=== PATIENT | female | born 1945 | race Caucasian/White ===

== ENCOUNTER 2017-02-27 09:48 | Outpatient (CLI) | payer MEDICARE | END 2017-02-27 09:49 | disposition home or self-care (01) | DX: G47.33 Obstructive sleep apnea (adult) (pediatric) (principal); G47.00 Insomnia, unspecified | CPT/HCPCS: 99203; G0463 ==

== ENCOUNTER 2017-04-03 19:31 | Outpatient (CLI) | payer MEDICARE | END 2017-04-03 19:32 | disposition home or self-care (01) | LOC: SC 19:31 | PROVIDERS: ATTEND Internal Medicine Pulmonary Disease | DX: G47.33 Obstructive sleep apnea (adult) (pediatric) (principal); Z68.29 Body mass index [BMI] 29.0-29.9, adult | CPT/HCPCS: 95810 ==

== ENCOUNTER 2017-05-03 12:22 | Outpatient (CLI) | payer MEDICARE ==
--- NOTE | 2017-05-04 16:59 | Mammography Report ---
DIGITAL SCREENING RIGHT MAMMOGRAM: 05/03/2017 CLINICAL INDICATION: A 72-year-old with history of late childbearing, personal history of left breast cancer, status post mastectomy. TECHNIQUE: Right CC and MLO views were obtained. COMPARISON: 04/2016, 03/2015, 02/2014, 02/2013, 08/2011, 08/2010. FINDINGS: The right breast again demonstrates scattered fibroglandular densities. No suspicious mass es, clustered microcalcifications, or regions of architectural distortion are identified. IMPRESSION: NEGATIVE EXAMINATION. RECOMMENDATION: ROUTINE ANNUAL SCREENING UNLESS OTHERWISE CLINICALLY INDICATED. BIRADS CATEGORY 1-NEGATIVE. STANDARD QUALIFYING STATEMENTS 1. This examination was reviewed with the aid of Computer-Aided Detection (CAD). 2. A negative or benign imaging report should not delay biopsy if clinically suspicious findings are present. Consider surgical consultation if warranted. More than 5% of cancers are not identified by i ing. 3. Dense breasts may obscure an underlying neoplasm. JOB #: [id number] EXT JOB #:[id number]
== END 2017-05-03 12:23 | disposition home or self-care (01) ==
LOC: DI 12:22
PROVIDERS: ATTEND Internal Medicine Hematology & Oncology
DX: Z12.31 Encounter for screening mammogram for malignant neoplasm of breast (principal); Z85.3 Personal history of malignant neoplasm of breast; Z90.12 Acquired absence of left breast and nipple

== ENCOUNTER 2017-05-10 09:13 | Outpatient (CLI) | payer MEDICARE | END 2017-05-10 09:14 | disposition home or self-care (01) | LOC: SC 09:13 | PROVIDERS: ATTEND Nurse Practitioner Family | DX: G47.33 Obstructive sleep apnea (adult) (pediatric) (principal) | CPT/HCPCS: 99214; G0463; 99212 ==

== ENCOUNTER 2017-12-30 11:30 | Emergency (ER) | payer MEDICARE ==
[2017-12-30 11:58] LABS: BASOPHILS # (AUTO) 0.3 10^3/uL (0.0-0.1); BASOPHILS % (AUTO) 4.6 %; EOSINOPHILS # (AUTO) 0.6 10^3/uL (0.0-0.7); EOSINOPHILS % (AUTO) 9.5 %; HGB - HEMOGLOBIN 13.4 g/dL (12.0-16.0); LYMPHOCYTES # (AUTO) 1.8 10^3/uL (1.5-3.5); LYMPHOCYTES % (AUTO) 27.4 %; MEAN CORPUSCULAR HEMOGLOBIN 36.7 pg (27.0-31.0); MEAN CORPUSCULAR HGB CONC 33.8 g/dL (32.0-36.0); MEAN PLATELET VOLUME 10.8 fL (7.9-10.8); MONOCYTES # (AUTO) 0.4 10^3/uL (0.0-1.0); MONOCYTES % (AUTO) 6.4 %; NEUTROPHILS # (AUTO) 3.4 10^3/uL (1.5-6.6); NEUTROPHILS % (AUTO) 52.1 %; PLT - PLATELET COUNT 230 10^3/uL (130-450); RED BLOOD COUNT 3.65 10^6/uL (4.20-5.40); RED CELL DISTRIBUTION WIDTH 12.7 % (12.0-15.0); WHITE BLOOD COUNT 6.6 x10^3/uL (4.8-10.8)
[2017-12-30 11:59] LABS: MEAN CORPUSCULAR VOLUME 108.6 fL (81.0-99.0)
[2017-12-30 12:04] LABS: CALCIUM 9.5 mg/dL (8.5-10.3); CREATININE 0.6 mg/dL (0.4-1.0)
[2017-12-30 12:19] LABS: PLATELET ESTIMATE, MANUAL NORMAL (130-450,000) (NORMAL); PLATELET MORPHOLOGY 1+ GIANT PLATELETS (NORMAL)
[2017-12-30] MEDS ORDERED: IPRATROPIUM/ALBUTEROL 3 ML NEB INH STA (12:29)
--- NOTE | 2017-12-30 12:59 | ED Physician Documentation ---
History of Present Illness - Stated complaint Stated Complaint: SOA - Chief complaint Chief Complaint: Resp - History obtained from History obtained from: Patient - History of Present Illness Timing: How many days ago (5) Pain level max: 0 Pain level now: 0 Improved by: albuterol Worsened by: exertion - Additonal information Additional information: states itchy, watery, eyes and dry cough for 5 days. Feels like her allergies in the past. Has wheezing. Does have COPD and is using albuterol at home, using it every 6 hrs for the past few days. No fevers. Albuterol helps. Worse with exertion. Review of Systems Constitutional: denies: Fever, Chills Ears: denies: Ear pain Nose: denies: Rhinorrhea / runny nose, Congestion Throat: denies: Sore throat Cardiac: denies: Chest pain / pressure Respiratory: reports: Wheezing GI: denies: Abdominal Pain, Nausea, Vomiting, Diarrhea Skin: denies: Rash Musculoskeletal: denies: Neck pain, Back pain Neurologic: denies: Headache PD PAST MEDICAL HISTORY - Past Medical History Cardiovascular: None Respiratory: COPD, Sleep apnea Endocrine/Autoimmune: None GI: None : None HEENT: None Psych: None Musculoskeletal: None Derm: None - Past Surgical History Past Surgical History: Yes General: Colonoscopy HEENT: Tonsil/Adenoidectomy Derm: Skin cancer surgery - Present Medications Home Medications: Ambulatory Orders Medication Instructions Recorded Confirmed Cholecalciferol (Vitamin D3) 2,500 unit PO DAILY 06/10/13 11/06/17 [Vitamin D] Anastrozole 1 mg ORAL DAILY 08/26/13 11/06/17 Calcium Carbonate [Calci-Chew] 500 tab PO DAILY 01/06/14 11/06/17 Cyanocobalamin/Folic Acid [Vitamin 1 tab PO DAILY 06/16/14 11/06/17 L88-Hatog Acid Tablet] Albuterol Sulf [Ventolin Hfa 1 - 2 puffs INH Q4HR PRN #1 inhaler 12/30/17 Inhaler] predniSONE [Prednisone] 40 mg PO DAILY #10 tablet 12/30/17 - Allergies Allergies/Adverse Reactions: Allergies Allergy/AdvReac Type Severity Reaction Status Date / Time No Known Drug Allergies Allergy Verified 12/30/17 11:40 - Social History Does the pt smoke?: No Smoking Status: Never smoker Does the pt drink ETOH?: No Does the pt have substance abuse?: No - Immunizations Immunizations are current?: Yes - POLST Patient has POLST: No PD ED PE NORMAL - Vitals Vital signs reviewed: Yes - General General: Alert and oriented X 3, No acute distress, Well developed/nourished - HEENT HEENT: PERRL, Ears normal, Moist mucous membranes, Pharynx benign - Neck Neck: Supple, no meningeal sign - Cardiac Cardiac: RRR - Respiratory Respiratory: No respiratory distress, Other (wheezing B) - Abdomen Abdomen: Soft, Non tender, Non distended - Derm Derm: Warm and dry, No rash - Extremities Extremities: No deformity, No edema, No calf tenderness / cord - Neuro Neuro: Alert and oriented X 3 - Psych Psych: Normal mood, Normal affect Results - Vitals Vitals: Vital Signs - 24 hr 12/30/17 12/30/17 12/30/17 11:37 12:55 13:36 Temperature 37.5 C 36.6 C Heart Rate 97 74 74 Respiratory 24 16 16 Rate Blood Pressure 187/87 H 136/74 H O2 Saturation 98 93 Oxygen O2 Source Room air - EKG (time done) 1151 Rate: Rate (enter#) (82) Rhythm: NSR [place]: Normal Intervals: Normal UT QRS: Normal Ischemia: Normal ST segments Computer interpretation: Agree with computer - Labs Labs: Laboratory Tests 12/30/17 12/30/17 12/30/17 11:51 11:51 11:51 WBC 6.6 RBC 3.65 L Hgb 13.4 Hct 39.7 MCV 108.6 H MCH 36.7 H MCHC 33.8 RDW 12.7 Plt Count 230 MPV 10.8 Neut # 3.4 Lymph # 1.8 [place] # 0.4 Eos # 0.6 Baso # 0.3 H Absolute Nucleated RBC 0.00 Nucleated RBC % 0.0 Manual Slide Review Indicated WBC Morphology NORMAL APPEARANCE Platelet Estimate NORMAL (130-450,000) Platelet Morphology 1+ GIANT PLATELETS RBC Morph Micro Appear 1+ TEARDROP CELLS Sodium 137 Potassium 4.1 Chloride 102 Carbon Dioxide 26 Anion Gap 9.0 BUN 14 Creatinine 0.6 Estimated GFR (MDRD) 99 Glucose 105 H Calcium 9.5 Troponin I < 0.04 B-Natriuretic Peptide 12/30/17 11:51 WBC RBC Hgb Hct MCV MCH MCHC RDW Plt Count MPV Neut # Lymph # [place] # Eos # Baso # Absolute Nucleated RBC Nucleated RBC % Manual Slide Review WBC Morphology Platelet Estimate Platelet Morphology RBC Morph Micro Appear Sodium Potassium Chloride Carbon Dioxide Anion Gap BUN Creatinine Estimated GFR (MDRD) Glucose Calcium Troponin I B-Natriuretic Peptide 74 - Rads (name of study) cxr Radiology: Prelim report reviewed, EMP read contemporaneously, See rad report ( no acute abnormality) PD MEDICAL DECISION MAKING - ED course Complexity details: reviewed results, re-evaluated patient, considered differential, d/w patient ED course: Patient is a 72-year-old female who presents to the emergency department with what appears to be a COPD flare. Feels better after nebulizer treatment here. Also will start on steroids. She is well-appearing, nontoxic. No evidence of infection at this time. Will hold antibiotics. No hypoxia. No respiratory distress. Improved aeration after nebulizer treatment. Speaking in full sentences. Patient and family counseled regarding signs and symptoms for which I believe and urgent re-evaluation would be necessary. Patient with good understanding of and agreement to plan and is comfortable going home at this time This document was made in part using voice recognition software. While efforts are made to proofread this document, sound alike and grammatical errors may occur. Departure - Departure Disposition: 01 Home, Self Care Clinical Impression: COPD exacerbation Upper respiratory tract infection Qualifiers: URI type: unspecified viral URI Qualified Code(s): J06.9 - Acute upper respiratory infection, unspecified Condition: Good Instructions: ED COPD Flare Follow-Up: Mari Mckeon PA [Primary Care Provider] - Within 1 week Prescriptions: Albuterol Sulf [Ventolin Hfa Inhaler] 1 - 2 puffs INH Q4HR PRN #1 inhaler PRN Reason: Shortness Of Air/Wheezing predniSONE [Prednisone] 40 mg PO DAILY #10 tablet Comments: Continue the albuterol at home. Return if you worsen. This should improve over the next few days. Discharge Date/Time: 12/30/17 13:38
[2017-12-30] MEDS ORDERED: predniSONE 20 MG TABLET PO STA (13:00)
--- NOTE | 2017-12-30 13:03 | XRAY Report ---
EXAM: CHEST RADIOGRAPHY EXAM DATE: 12/30/2017 12:27 PM. CLINICAL HISTORY: Cp soa. COMPARISON: 06/19/2016. TECHNIQUE: 2 views. FINDINGS: Lungs/Pleura: No focal consolidation evident. No pleural effusion. No pneumothorax. Normal volumes. Mediastinum: Heart and mediastinal contours are unremarkable. Other: None. IMPRESSION: No radiographically apparent acute abnormality in the chest. No significant change from p rior. [facility] Referring Provider Line: [phone] SITE ID: [id number]
[2017-12-30 13:37] VITALS: BP 136/74
== END 2017-12-30 13:38 | disposition home or self-care (01) ==
LOC: ED 11:30
DX: J44.9 Chronic obstructive pulmonary disease, unspecified (principal); J06.9 Acute upper respiratory infection, unspecified
CPT/HCPCS: 36415; 71046; 80048; 83880; 84484; 85025; 93005; 94640; 99283; 99284; J7512

== ENCOUNTER 2018-05-08 08:29 | Outpatient (CLI) | payer MEDICARE ==
--- NOTE | 2018-05-09 16:26 | Mammography Report ---
Procedure Date: 05/08/2018 Accession Number: [id number] / [id number] Procedure: MGN - Screening Mammo Dig RT CPT Code: FULL RESULT: EXAM: Screening Mammo Dig RT DATE: 05/08/2018 8:52 AM CLINICAL HISTORY: 73-year-old female with history of late childbearing and left breast mastectomy due to breast cancer presents for mammogram. TECHNIQUE: Right CC and MLO views were obtained. COMPARISON: 05/03/2017, 05/04/2016, 04/13/2015, 03/03/2014. FINDINGS: The right breast demonstrates scattered fibroglandular densities bilaterally. No suspicious masses, clustered microcalcifications, or regions of architectural distortion are identified. IMPRESSION: Negative examination RECOMMENDATION: Routine annual screening unless otherwise clinically indicated. BIRADS CATEGORY 1: Negative STANDARD QUALIFYING STATEMENTS: 1. This examination was reviewed with the aid of Computer-Aided Detection (CAD). 2. A negative or benign imaging report should not delay biopsy if clinically suspicious findings are present. Consider surgical consultation if warrented. More than 5% of cancers are not identified by imaging. 3. Dense breasts may obscure an underlying neoplasm.
== END 2018-05-08 08:30 | disposition home or self-care (01) ==
LOC: DI.N 08:29
PROVIDERS: ATTEND Internal Medicine Hematology & Oncology
DX: Z12.31 Encounter for screening mammogram for malignant neoplasm of breast (principal); Z85.3 Personal history of malignant neoplasm of breast; Z90.12 Acquired absence of left breast and nipple

== ENCOUNTER 2019-01-17 17:09 | Emergency (ER) | payer MEDICARE ==
[2019-01-17] MEDS ORDERED: IPRATROPIUM/ALBUTEROL 3 ML NEB INH STA (17:14)
[2019-01-17] MEDS ORDERED: predniSONE 20 MG TABLET PO STA (17:14)
[2019-01-17] MEDS ORDERED: ALBUTEROL NEB 2.5 MG/3 ML INH STA ×2 (17:48→19:01)
--- NOTE | 2019-01-17 18:32 | ED Physician Documentation ---
PD HPI DYSPNEA - Stated complaint Stated Complaint: DIFFICULTY BREATHING - Chief complaint Chief Complaint: Resp - History obtained from History obtained from: Patient, Family - History of Present Illness Timing - details: Gradual onset Pain level max: 0 Pain level now: 0 Improved by: Rest Worsened by: Exertion Associated symptoms: No: Fever Similar symptoms before: Has not had sx before Recently seen: Not recently seen - Additional information Additional information: 73-year-old female with a history of COPD presents to the emergency department dyspnea for the past 2 weeks. Increasing wheezing. No fevers. No chest pain. No change in her cough. Does have albuterol at home. Is not on steroids. Review of Systems Constitutional: denies: Fever, Chills Cardiac: denies: Chest pain / pressure Respiratory: reports: Dyspnea, Wheezing GI: denies: Vomiting, Diarrhea Skin: denies: Rash Musculoskeletal: denies: Neck pain, Back pain PD PAST MEDICAL HISTORY - Past Medical History Cardiovascular: None Respiratory: COPD, Sleep apnea Endocrine/Autoimmune: None GI: None : None HEENT: None Psych: None Musculoskeletal: None Derm: None - Past Surgical History Past Surgical History: Yes General: Colonoscopy HEENT: Tonsil/Adenoidectomy Derm: Skin cancer surgery - Present Medications Home Medications: Ambulatory Orders Medication Instructions Recorded Confirmed Cholecalciferol (Vitamin D3) 2,500 unit PO DAILY 06/10/13 11/12/18 [Vitamin D] Calcium Carbonate [Calci-Chew] 500 tab PO DAILY 01/06/14 11/12/18 Cyanocobalamin/Folic Acid [Vitamin 1 tab PO DAILY 06/16/14 11/12/18 H64-Qsrni Acid Tablet] Albuterol Sulf [Ventolin Hfa 1 - 2 puffs INH Q4HR PRN #1 inhaler 12/30/17 11/12/18 Inhaler] predniSONE [Deltasone] 10 mg PO [id number] #42 tab 01/17/19 - Allergies Allergies/Adverse Reactions: Allergies Allergy/AdvReac Type Severity Reaction Status Date / Time No Known Drug Allergies Allergy Verified 01/17/19 17:17 - Social History Does the pt smoke?: No Smoking Status: Never smoker Does the pt drink ETOH?: No Does the pt have substance abuse?: No - Immunizations Immunizations are current?: Yes - POLST Patient has POLST: No PD ED PE NORMAL - Vitals Vital signs reviewed: Yes - General General: Alert and oriented X 3, Well developed/nourished - HEENT HEENT: PERRL, Moist mucous membranes - Neck Neck: Supple, no meningeal sign - Cardiac Cardiac: RRR, Strong equal pulses - Respiratory Respiratory: Other (diminished breath sounds, pursed lip breathing.) - Abdomen Abdomen: Soft, Non tender, Non distended - Derm Derm: Warm and dry - Extremities Extremities: No edema - Neuro Neuro: Alert and oriented X 3 - Psych Psych: Normal mood, Normal affect Results - Vitals Vitals: Vital Signs - 24 hr 01/17/19 01/17/19 01/17/19 17:11 17:34 18:26 Temperature 36.6 C Heart Rate 97 89 83 Respiratory 24 18 20 Rate Blood Pressure 160/84 H O2 Saturation 93 01/17/19 01/17/19 01/17/19 18:56 19:18 19:57 Temperature 36.9 C 36.8 C Heart Rate 86 87 64 Respiratory 16 20 18 Rate Blood Pressure 140/89 H 134/84 H O2 Saturation 94 96 Oxygen O2 Source Room air PD MEDICAL DECISION MAKING - ED course Complexity details: re-evaluated patient, considered differential, d/w patient, d/w family ED course: 73-year-old female presents to the emergency department with a COPD flare. Will place on steroids as well as a steroid taper. Feels better after steroids and nebulizer treatment here. No hypoxia. No further respiratory distress. Patient counseled regarding signs and symptoms for which I believe and urgent re-evaluation would be necessary. Patient with good understanding of and agreement to plan and is comfortable going home at this time This document was made in part using voice recognition software. While efforts are made to proofread this document, sound alike and grammatical errors may occur. No fevers. No change in cough. Will hold x-ray at this time as well. Departure - Departure Disposition: 01 Home, Self Care Clinical Impression: COPD exacerbation Condition: Good Instructions: ED COPD Flare Follow-Up: Mari Mckeon PA [Primary Care Provider] - Within 1 week Prescriptions: predniSONE [Deltasone] 10 mg PO [id number] #42 tab Comments: Continue to use your inhaler every 3-4 hours at home. Use the steroids as directed. Return if you worsen. Your prescriptions were sent to [facility] Discharge Date/Time: 01/17/19 19:57
[2019-01-17 19:57] VITALS: BP 134/84
== END 2019-01-17 19:57 | disposition home or self-care (01) ==
LOC: ED 17:09
DX: J44.1 Chronic obstructive pulmonary disease with (acute) exacerbation (principal)
CPT/HCPCS: 94640; 99282; 99284; J7512

== ENCOUNTER 2019-05-09 10:08 | Outpatient (CLI) | payer MEDICARE ==
--- NOTE | 2019-05-09 11:37 | Mammography Report ---
Reason: SCREENING MAMMO / L BREAST CANCER Procedure Date: 05/09/2019 Accession Number: [id number] / [id number] Procedure: SHEFALI - Screening Mammo Right w/Abraham CPT Code: FULL RESULT: EXAM: Screening Mammo Right w/Abraham DATE: 05/09/2019 10:41 AM CLINICAL HISTORY: Screening encounter. History of late childbearing. Personal history of breast cancer status post left mastectomy. History of early menses. TECHNIQUE: (R) - Right CC and MLO views were obtained. COMPARISON: 05/03/2017 through 04/13/2015. PARENCHYMAL PATTERN: (A) - The breast(s) demonstrate(s) scattered fibroglandular densities. FINDINGS: There are no suspicious masses, calcifications, or areas of distortion. IMPRESSION: Negative examination. BI-RADS category 1. RECOMMENDATION: (ANNUAL) - Recommend routine annual screening mammography. BI-RADS CATEGORY: (1) - Negative. STANDARD QUALIFYING STATEMENTS: 1. This examination was not reviewed with the aid of Computer-Aided Detection (CAD). 2. A negative or benign imaging report should not preclude biopsy if clinically suspicious findings are present. 3. Dense breasts may obscure an underlying neoplasm. 4. This examination was reviewed with the aid of 3D breast imaging (tomosynthesis).
== END 2019-05-09 10:09 | disposition home or self-care (01) ==
LOC: DI 10:08
PROVIDERS: ATTEND Internal Medicine Hematology & Oncology
DX: Z12.31 Encounter for screening mammogram for malignant neoplasm of breast (principal); Z08 Encounter for follow-up examination after completed treatment for malignant neoplasm; Z85.3 Personal history of malignant neoplasm of breast
CPT/HCPCS: 77063

== ENCOUNTER 2020-10-27 10:40 | Outpatient (CLI) | payer MEDICARE ==
--- OUTSIDE RECORDS SUMMARY | 2020-10-27 10:42 | EXTERNAL MEDICAL SUMMARY RPT | Continuity of Care Document ---
:1945 Demographics Phone Unavailable Preferred Language Unknown Marital Status Unknown Yazidism Affiliation Unknown Race Unknown Ethnic Group Unknown Author Organization [facility] Address [address] [phone] Phone Care Team Providers Name Role Phone Mike Mari Unavailable Unavailable Leah Lam Unavailable Unavailable Problems date description facility 2017-11-06 10:14 MALIGNANT NEOPLASM OF UNSPECIFIED [facility] SITE OF LEFT FEMALE BREAST 2017-11-06 10:14 UNSPECIFIED OSTEOARTHRITIS, [facility] UNSPECIFIED SITE 2017-11-06 10:14 FIBROMYALGIA [facility] 2017-11-06 10:14 OTH DISRD OF BONE DENSITY AND 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 AND NIPPLE 2019-11-11 10:20 DECREASED WHITE BLOOD CELL COUNT, [facility] UNSPECIFIED 2019-11-11 10:20 OTHER SPECIFIED DISEASES OF BLOOD [facility] AND BLOOD-FORMING ORGANS 2019-11-11 10:20 UNSPECIFIED OSTEOARTHRITIS, [facility] UNSPECIFIED SITE 2019-11-11 10:20 FIBROMYALGIA [facility] 2019-11-11 10:20 OTH DISRD OF BONE DENSITY AND [facility] STRUCTURE, UNSPECIFIED SITE 2019-11-11 10:20 OTH DISRD OF BONE DENSITY AND [facility] STRUCTURE, OTHER SITE 2019-11-11 10:20 ENCNTR FOR FOLLOW-UP EXAM AFTER [facility] TRTMT FOR MALIGNANT NEOPLASM 2019-11-11 10:20 OTHER TERMITE CONTROL REPRESENTATIVE (CURRENT) DRUG [facility] THERAPY 2019-11-11 10:20 PERSONAL HISTORY OF MALIGNANT 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 BLD/BLD-FORM ORG/IMMUN MECHNSM 2019-11-11 10:20 ACQUIRED ABSENCE OF LEFT BREAST [facility] AND NIPPLE 2019-11-11 10:20 PERSONAL HISTORY OF OTHER DRUG [facility] THERAPY 2020-11-08 14:00 DECREASED WHITE BLOOD CELL COUNT, [facility] UNSPECIFIED 2020-11-08 14:00 OTHER SPECIFIED DISEASES OF BLOOD [facility] AND BLOOD-FORMING ORGANS 2020-11-08 14:00 UNSPECIFIED OSTEOARTHRITIS, [facility] UNSPECIFIED SITE 2020-11-08 14:00 FIBROMYALGIA [facility] 2020-11-08 14:00 OTH DISRD OF BONE DENSITY AND [facility] STRUCTURE, UNSPECIFIED SITE 2020-11-08 14:00 OTH DISRD OF BONE DENSITY AND [facility] STRUCTURE, OTHER SITE 2020-11-08 14:00 ENCNTR FOR FOLLOW-UP EXAM AFTER [facility] TRTMT FOR MALIGNANT NEOPLASM 2020-11-08 14:00 OTHER TERMITE CONTROL REPRESENTATIVE (CURRENT) DRUG [facility] THERAPY 2020-11-08 14:00 PERSONAL HISTORY OF MALIGNANT [facility] NEOPLASM OF BREAST 2020-11-08 14:00 PERSONAL HISTORY OF MALIGNANT [facility] MELANOMA OF SKIN 2020-11-08 14:00 PRSNL HISTORY OF DIS OF THE [facility] BLD/BLD-FORM ORG/IMMUN [facility] 2020-11-08 14:00 ACQUIRED ABSENCE OF LEFT BREAST [facility] AND NIPPLE 2020-11-08 14:00 PERSONAL HISTORY OF OTHER DRUG [facility] THERAPY Allergies date description facility NO KNOWN ALLERGIES [facility] AMOXICILLIN [facility] HYDROXYCHLOROQUINE [facility] PENICILLIN [facility] LEMON [facility] PENICILLINS [facility] RIVAROXABAN [facility] Social History date description facility [phone]
--- NOTE | 2020-10-27 11:25 | DEXA Report ---
PROCEDURE: Dexa Spine and/or Hip INDICATIONS: DISORDERS OF BONE DENSITY AND STRUCTURE TECHNIQUE: Dual energy x-ray absorptiometry (DXA) was performed on a [employer] System. Regions measur ed are the AP Spine, femoral neck, and if needed forearm. COMPARISON: 11/05/2018. FINDINGS: Lumbar Spine: Bone Mineral Density 1.49 g/cm/cm,T score 2.6, there is interval 12.2% increase in total lumbar sp ine bone mineral density since previous study Total left Hip: Bone Mineral Density 0.978 g/cm/cm,T score -0.2, there is interval 1.8% increase in left total hip b one marrow density. Left Femoral Neck: Bone Mineral Density 0.851 g/cm/cm, T score -1.3. (T score greater or equal to -1.0: NORMAL) (T score from -1.1 to -2.4: OSTEOPENIA) (T score less than or equal to -2.5 to: OSTEOPOROSIS) Impression: Osteopenia. Patients with diagnosis of osteoporosis or osteopenia should have regular bone mineral density assess ment. For those eligible for Medicare, routine testing is allowed once every 2 years. Testing frequ ency can be increased for patients who have rapidly progressing disease or for those who are receivin g medical therapy to restore bone mass. Reviewed by: Kosta Dawson MD on 10/27/2020 11:24 AM PST Approved by: Kosta Dawson MD on 10/27/2020 11:24 AM PST Station ID: [id number]
== END 2020-10-27 10:41 | disposition home or self-care (01) ==
LOC: DI 10:40
PROVIDERS: ATTEND Internal Medicine Hematology & Oncology
DX: M85.89 Other specified disorders of bone density and structure, multiple sites (principal)

== ENCOUNTER 2020-12-22 13:08 | Outpatient (CLI) | payer MEDICARE | END 2020-12-22 13:09 | disposition home or self-care (01) | LOC: RT 13:08 | PROVIDERS: ATTEND Internal Medicine | DX: J44.9 Chronic obstructive pulmonary disease, unspecified (principal) | CPT/HCPCS: 94060; 94729 ==

== ENCOUNTER 2020-12-23 07:02 | Outpatient (CLI) | payer MEDICARE ==
[2020-12-23 16:27] LABS: BASOPHILS # (AUTO) 0.2 10^3/uL (0.0-0.1); BASOPHILS % (AUTO) 3.4 %; EOSINOPHILS # (AUTO) 0.4 10^3/uL (0.0-0.7); EOSINOPHILS % (AUTO) 9.9 %; HCT - HEMATOCRIT 39.6 % (37.0-47.0); HGB - HEMOGLOBIN 12.9 g/dL (12.0-16.0); LYMPHOCYTES # (AUTO) 1.6 10^3/uL (1.5-3.5); LYMPHOCYTES % (AUTO) 37.5 %; MEAN CORPUSCULAR HEMOGLOBIN 37.1 pg (27.0-31.0); MEAN CORPUSCULAR HGB CONC 32.6 g/dL (32.0-36.0); MEAN CORPUSCULAR VOLUME 113.8 fL (81.0-99.0); MEAN PLATELET VOLUME 13.5 fL (7.9-10.8); MONOCYTES # (AUTO) 0.3 10^3/uL (0.0-1.0); MONOCYTES % (AUTO) 6.9 %; NEUTROPHILS # (AUTO) 1.8 10^3/uL (1.5-6.6); NEUTROPHILS % (AUTO) 42.1 %; PLT - PLATELET COUNT 247 10^3/uL (130-450); RED BLOOD COUNT 3.48 10^6/uL (4.20-5.40); RED CELL DISTRIBUTION WIDTH 12.6 % (12.0-15.0); WHITE BLOOD COUNT 4.4 x10^3/uL (4.8-10.8)
[2020-12-23 16:33] LABS: SLIDE REVIEW? Indicated
[2020-12-23 16:55] LABS: PLATELET ESTIMATE, MANUAL NORMAL (130-450,000) (NORMAL); PLATELET MORPHOLOGY NORMAL APPEARANCE (NORMAL); RBC MORPHOLOGY (MULTIPLE) NORMAL APPEARANCE (NORMAL); WBC MORPHOLOGY (MULTIPLE) NORMAL APPEARANCE (NORMAL)
[2020-12-23 17:31] LABS: ALBUMIN 4.3 g/dL (3.2-5.5); ALBUMIN/GLOBULIN RATIO 1.6 (1.0-2.2); ALKALINE PHOSPHATASE 67 IU/L (42-121); ALT ALANINE AMINOTRANSFERASE 16 IU/L (10-60); AST ASPARTATE AMINOTRANSFERASE 19 IU/L (10-42); BILIRUBIN,TOTAL 1.1 mg/dL (0.2-1.0); BUN - BLOOD UREA NITROGEN 19 mg/dL (6-20); CALCIUM 9.1 mg/dL (8.5-10.3); CARBON DIOXIDE - CO2 28 mmol/L (21-32); CHLORIDE 103 mmol/L (101-111); CHOL/HDL RATIO 3.3 (<4.4); CHOLESTEROL 241 mg/dL; CREATININE 0.6 mg/dL (0.4-1.0); GFR - MDRD 98 (>89); GLUCOSE 101 mg/dL (70-100); HDL CHOLESTEROL 72 mg/dL; LDL CHOLESTEROL,CALCULATED 148 mg/dL; LDL/HDL RATIO 2.1 (<4.4); POTASSIUM 4.1 mmol/L (3.5-5.0); SODIUM 139 mmol/L (135-145); TRIGLYCERIDES 106 mg/dL; VLDL CHOLESTEROL 21 mg/dL
[2020-12-24 12:37] LABS: HEPATITIS C ANTIBODY NON-REACTIVE (NON-REACTIVE)
== END 2020-12-23 07:03 | disposition home or self-care (01) ==
LOC: LAB.S 07:02
PROVIDERS: ATTEND Internal Medicine
DX: R06.00 Dyspnea, unspecified (principal); Z11.59 Encounter for screening for other viral diseases; Z13.6 Encounter for screening for cardiovascular disorders; Z79.899 Other long term (current) drug therapy; J30.2 Other seasonal allergic rhinitis; J44.9 Chronic obstructive pulmonary disease, unspecified; M19.90 Unspecified osteoarthritis, unspecified site; C50.919 Malignant neoplasm of unspecified site of unspecified female breast
CPT/HCPCS: 36415; 80053; 80061; 82306; 83721; 83880; 84443; 85025; 86803

== ENCOUNTER 2022-03-27 16:12 | Outpatient (CLI) | payer MEDICARE ==
[2022-03-27 16:21] LABS: BASOPHILS # (AUTO) 0.1 10^3/uL (0.0-0.1); BASOPHILS % (AUTO) 3.2 %; EOSINOPHILS # (AUTO) 0.2 10^3/uL (0.0-0.7); EOSINOPHILS % (AUTO) 4.9 %; HCT - HEMATOCRIT 38.9 % (37.0-47.0); HGB - HEMOGLOBIN 13.1 g/dL (12.0-16.0); LYMPHOCYTES # (AUTO) 1.4 10^3/uL (1.5-3.5); LYMPHOCYTES % (AUTO) 33.1 %; MEAN CORPUSCULAR HEMOGLOBIN 37.9 pg (27.0-31.0); MEAN CORPUSCULAR HGB CONC 33.7 g/dL (32.0-36.0); MEAN CORPUSCULAR VOLUME 112.4 fL (81.0-99.0); MEAN PLATELET VOLUME 13.2 fL (7.9-10.8); MONOCYTES # (AUTO) 0.3 10^3/uL (0.0-1.0); MONOCYTES % (AUTO) 6.3 %; NEUTROPHILS # (AUTO) 2.3 10^3/uL (1.5-6.6); NEUTROPHILS % (AUTO) 52.3 %; PLT - PLATELET COUNT 251 10^3/uL (130-450); RED BLOOD COUNT 3.46 10^6/uL (4.20-5.40); RED CELL DISTRIBUTION WIDTH 12.7 % (12.0-15.0); WHITE BLOOD COUNT 4.3 x10^3/uL (4.8-10.8)
[2022-03-27 16:39] LABS: ALBUMIN 4.3 g/dL (3.2-5.5); ALBUMIN/GLOBULIN RATIO 1.4 (1.0-2.2); ALKALINE PHOSPHATASE 67 IU/L (42-121); ALT ALANINE AMINOTRANSFERASE 17 IU/L (10-60); AST ASPARTATE AMINOTRANSFERASE 20 IU/L (10-42); BILIRUBIN,TOTAL 1.4 mg/dL (0.2-1.0); BUN - BLOOD UREA NITROGEN 16 mg/dL (6-20); CALCIUM 9.2 mg/dL (8.5-10.3); CARBON DIOXIDE - CO2 30 mmol/L (21-32); CHLORIDE 100 mmol/L (101-111); CHOL/HDL RATIO 3.1 (<4.4); CHOLESTEROL 258 mg/dL; CREATININE 0.7 mg/dL (0.4-1.0); GFR - MDRD 82 (>89); GLUCOSE 99 mg/dL (70-100); HDL CHOLESTEROL 83 mg/dL; LDL CHOLESTEROL,CALCULATED 158 mg/dL; LDL/HDL RATIO 1.9 (<4.4); POTASSIUM 3.9 mmol/L (3.5-5.0); SODIUM 139 mmol/L (135-145); TOTAL PROTEIN 7.3 g/dL (6.7-8.2); TRIGLYCERIDES 87 mg/dL; VLDL CHOLESTEROL 17 mg/dL
== END 2022-03-27 16:13 | disposition home or self-care (01) ==
LOC: LAB 16:12
PROVIDERS: ATTEND Internal Medicine
DX: Z00.00 Encounter for general adult medical examination without abnormal findings (principal); J44.9 Chronic obstructive pulmonary disease, unspecified; C50.919 Malignant neoplasm of unspecified site of unspecified female breast; C43.9 Malignant melanoma of skin, unspecified; M19.90 Unspecified osteoarthritis, unspecified site; J45.909 Unspecified asthma, uncomplicated; J30.2 Other seasonal allergic rhinitis
CPT/HCPCS: 36415; 80053; 80061; 82306; 83721; 84443; 85025

== ENCOUNTER 2022-11-03 09:44 | Outpatient (CLI) | payer MEDICARE ==
--- NOTE | 2022-11-03 10:44 | DEXA Report ---
PROCEDURE: Dexa Spine and/or Hip INDICATIONS: OSTEOPENIA TECHNIQUE: Dual energy x-ray absorptiometry (DXA) was performed on a [employer] System. Regions measur ed are the AP Spine, femoral neck, and if needed forearm. COMPARISON: DEXA, 10/27/2021. FINDINGS: Lumbar Spine: Bone Mineral Density 1.503 g/cm/cm,T score 2.7, normal. Left Femoral Neck: Bone Mineral Density 0.925 g/cm/cm, T score -0.8, normal. Left Hip: Bone Mineral Density 0.67 g/cm/cm,T score -0.3, normal. (T score greater or equal to -1.0: NORMAL) (T score from -1.1 to -2.4: OSTEOPENIA) (T score less than or equal to -2.5 to: OSTEOPOROSIS) Impression: Based on WHO criteria, the patient has normal bone mineral density. Compared to the last examination, the patient's bone mineral density in lumbar spine and left hip are not statistical significantly ch anged. Patients with diagnosis of osteoporosis or osteopenia should have regular bone mineral density assess ment. For those eligible for Medicare, routine testing is allowed once every 2 years. Testing frequ ency can be increased for patients who have rapidly progressing disease or for those who are receivin g medical therapy to restore bone mass. Reviewed by: Xochilt Waddell MD on 11/03/2022 9:43 AM [facility] Approved by: Xochilt Waddell MD on 11/03/2022 9:43 AM [facility] Station ID: [id number]
== END 2022-11-03 09:45 | disposition home or self-care (01) ==
LOC: DI 09:44
PROVIDERS: ATTEND Internal Medicine Hematology & Oncology
DX: M85.80 Other specified disorders of bone density and structure, unspecified site (principal); Z85.3 Personal history of malignant neoplasm of breast

== ENCOUNTER 2023-01-25 14:47 | Outpatient (CLI) | payer MEDICARE ==
[2023-01-25 15:15] LABS: CALCIUM 9.5 mg/dL (8.5-10.3); CREATININE 0.6 mg/dL (0.4-1.0); MAGNESIUM 2.1 mg/dL (1.7-2.8); POTASSIUM 4.2 mmol/L (3.5-5.0)
[2023-01-25 20:05] LABS: ESTIMATED AVERAGE GLUCOSE 111 mg/dL (70-100); HEMOGLOBIN A1c% 5.5 % (4.27-6.07)
== END 2023-01-25 14:48 | disposition home or self-care (01) ==
LOC: LAB 14:47
PROVIDERS: ATTEND Internal Medicine
DX: R73.9 Hyperglycemia, unspecified (principal); M79.604 Pain in right leg
CPT/HCPCS: 36415; 80048; 83036; 83735; 85379

== ENCOUNTER 2023-01-25 17:18 | Outpatient (CLI) | payer MEDICARE ==
--- NOTE | 2023-01-25 19:04 | Ultrasound Report ---
PROCEDURE: Duplex Ext Veins Right INDICATIONS: R LEG PAIN TECHNIQUE: Real-time imaging, as well as color and pulse Doppler interrogation, were performed of the lower extr emity deep veins from the inguinal ligament to the popliteal fossa. COMPARISON: None. FINDINGS: The deep veins are normally compressible, and free of intraluminal thrombus. Color and pu lse Doppler demonstrate normal phasic intraluminal flow. There is normal augmentation response to di stal compression maneuver. IMPRESSION: No sonographic evidence of deep venous thrombosis in the right lower extremity. Reviewed by: Stuart Stallworth MD on 01/25/2023 7:03 PM PDT Approved by: Stuart Stallworth MD on 01/25/2023 7:03 PM PDT Station ID: [id number]
== END 2023-01-25 17:19 | disposition home or self-care (01) ==
LOC: DI 17:18
PROVIDERS: ATTEND Internal Medicine
DX: R73.9 Hyperglycemia, unspecified (principal); M79.604 Pain in right leg
CPT/HCPCS: 36415; 80048; 83036; 83735; 85379

== ENCOUNTER 2023-06-07 07:27 | Outpatient (CLI) | payer MEDICARE ==
--- NOTE | 2023-06-07 13:45 | XRAY Report ---
PROCEDURE: Lumbar Spine Complete INDICATIONS: BILATERAL HIP JOINT PAIN TECHNIQUE: 4 views of the lumbar spine were acquired. COMPARISON: None. FINDINGS: Bones: 5 [id number] vertebrae are present. Disc space narrowing and hypertrophic facet joints p resent throughout the exam, particularly in the lower lumbar spine. Grade 1 L4-5 anterior degenerativ e spinal listhesis present. No vertebral body compression fractures. No suspicious bony lesions. Soft tissues: Overlying bowel gas pattern is normal. No suspicious soft tissue calcifications. Ath erosclerotic calcification of the abdominal aorta without evidence of aneurysm. IMPRESSION: Multilevel degenerative disc disease and arthropathy, particularly lower lumbar spine. No fracture. Reviewed by: Percy Martínez MD on 06/07/2023 12:44 PM [facility] Approved by: Percy Martínez MD on 06/07/2023 12:44 PM [facility] Station ID: [id number]
[2023-06-07 14:41] LABS: BASOPHILS % (AUTO) 3.9 %; EOSINOPHILS % (AUTO) 7.9 %; HCT - HEMATOCRIT 38.6 % (37.0-47.0); HGB - HEMOGLOBIN 12.6 g/dL (12.0-16.0); LYMPHOCYTES % (AUTO) 36.6 %; MEAN CORPUSCULAR HEMOGLOBIN 37.6 pg (27.0-31.0); MEAN CORPUSCULAR HGB CONC 32.6 g/dL (32.0-36.0); MEAN CORPUSCULAR VOLUME 115.2 fL (81.0-99.0); MEAN PLATELET VOLUME 13.1 fL (7.9-10.8); MONOCYTES % (AUTO) 7.1 %; NEUTROPHILS % (AUTO) 44.3 %; PLT - PLATELET COUNT 238 10^3/uL (130-450); RED BLOOD COUNT 3.35 10^6/uL (4.20-5.40); RED CELL DISTRIBUTION WIDTH 13.5 % (12.0-15.0); WHITE BLOOD COUNT 4.1 x10^3/uL (4.8-10.8)
[2023-06-07 14:45] LABS: SLIDE REVIEW? Indicated
[2023-06-07 14:49] LABS: ABNORMAL LYMPHS % (MANUAL) 0 %; ALBUMIN 4.3 g/dL (3.2-5.5); ALBUMIN/GLOBULIN RATIO 1.7 (1.0-2.2); ALKALINE PHOSPHATASE 63 IU/L (42-121); ALT ALANINE AMINOTRANSFERASE 13 IU/L (10-60); AST ASPARTATE AMINOTRANSFERASE 18 IU/L (10-42); BILIRUBIN,TOTAL 1.1 mg/dL (0.2-1.0); BUN - BLOOD UREA NITROGEN 17 mg/dL (6-20); CALCIUM 9.7 mg/dL (8.5-10.3); CARBON DIOXIDE - CO2 32 mmol/L (21-32); CHLORIDE 105 mmol/L (101-111); CREATININE 0.7 mg/dL (0.6-1.3); CRP - C-REACTIVE PROTEIN < 0.5 mg/dL (<0.5); GFR - MDRD 81 (>89); GLUCOSE 101 mg/dL (74-104); POTASSIUM 4.5 mmol/L (3.5-4.5); SODIUM 139 mmol/L (135-145); TOTAL PROTEIN 6.9 g/dL (6.4-8.9); URIC ACID 7.9 mg/dL (2.3-6.6)
[2023-06-07 15:06] LABS: THYROID STIMULATING HORMONE 3.32 uIU/mL (0.34-5.60)
[2023-06-07 15:11] LABS: ESTIMATED AVERAGE GLUCOSE 114 mg/dL (70-100); HEMOGLOBIN A1c% 5.6 % (4.27-6.07)
[2023-06-07 15:29] LABS: BAND NEUTROPHILS % (MANUAL) 1 %; BASOPHILS # (MANUAL) 0.3 10^3/uL (0-0.1); BASOPHILS % (MANUAL) 7 %; EOSINOPHILS # (MANUAL) 0.2 10^3/uL (0-0.7); LYMPHOCYTES # (MANUAL) 1.5 10^3/uL (1.5-3.5); LYMPHOCYTES % (MANUAL) 30 %; METAMYELOCYTES % (MANUAL) 1 %; MONOCYTES # (MANUAL) 0.3 10^3/uL (0.0-1.0); NEUTROPHILS # (MANUAL) 1.7 10^3/uL (1.5-6.6); REACTIVE LYMPHS % (MANUAL) 7 %
[2023-06-07 15:31] LABS: DIFFERENTIAL COMMENT MANUAL DIFFERENTIAL; PLATELET ESTIMATE, MANUAL NORMAL (130-450,000) (NORMAL); PLATELET MORPHOLOGY 1+ GIANT PLATELETS (NORMAL); SLIDE SENT FOR PATH REVIEW? Indicated
== END 2023-06-07 07:28 | disposition home or self-care (01) ==
LOC: DI.S 07:27
PROVIDERS: ATTEND Internal Medicine
DX: M25.552 Pain in left hip (principal); M25.551 Pain in right hip; M51.36 Other intervertebral disc degeneration, lumbar region; M47.816 Spondylosis without myelopathy or radiculopathy, lumbar region; F41.8 Other specified anxiety disorders; R53.83 Other fatigue; R71.8 Other abnormality of red blood cells; M10.9 Gout, unspecified; D72.819 Decreased white blood cell count, unspecified; D75.89 Other specified diseases of blood and blood-forming organs
CPT/HCPCS: 36415; 80053; 82607; 83036; 84443; 84550; 85025; 86140

== ENCOUNTER 2023-07-24 09:06 | Outpatient (CLI) | payer MEDICARE ==
--- NOTE | 2023-07-24 11:22 | MRI Report ---
PROCEDURE: MRI lumbar spine without contrast INDICATIONS: LOW BACK PAIN TECHNIQUE: Multiplanar multisequential MRI images of the lumbar spine were obtained without intraven ous contrast. COMPARISON: None. FINDINGS: Alignment and Curvature: Grade 1 anterior degenerative spondylolisthesis at L4-5 Bone Marrow: Degenerative endplate changes and left apical L3 vertebral body hemangioma Spinal Cord: Conus medullaris terminates at the L1 level. Visualized cord demonstrates normal signa l and size. Paraspinal Soft Tissues: Unremarkable perivertebral soft tissues. T12-L1: Normal in appearance. L1-L2: Disc space narrowing and circumferential disc bulge results in mild central stenosis. No fo raminal stenosis. L2-L3: Disc space narrowing with small 3 mm central disc protrusion results in mild to moderate ce ntral stenosis. L3-L4: Disc space narrowing with circumferential disc bulge and hypertrophic facet joints combine t o result in moderate severe central stenosis. Moderate bilateral foraminal stenosis. L4-L5: Disc space narrowing with circumferential disc bulge, hypertrophic facet joints and ligament um flavum laxity combined results in severe central stenosis. No significant foraminal stenosis prese nt. L5-S1: Disc space narrowing with posterior disc bulge and hypertrophic facet joints results in mode rate central stenosis. High intensity zone in the posterior annulus noted as well. Mild bilateral for aminal stenosis IMPRESSION: Multilevel degenerative disc disease and arthropathy results in varying degrees of central and forami nal stenosis including severe central stenosis at L4-5 and moderate to severe central stenosis L3-4 Reviewed by: Percy Martínez MD on 07/24/2023 10:20 AM [facility] Approved by: Percy Martínez MD on 07/24/2023 10:20 AM MORGAN Station ID: [id number]
== END 2023-07-24 09:07 | disposition home or self-care (01) ==
LOC: DI 09:06
PROVIDERS: ATTEND Internal Medicine
DX: M51.26 Other intervertebral disc displacement, lumbar region (principal); M47.816 Spondylosis without myelopathy or radiculopathy, lumbar region; M51.36 Other intervertebral disc degeneration, lumbar region; M48.061 Spinal stenosis, lumbar region without neurogenic claudication; M47.817 Spondylosis without myelopathy or radiculopathy, lumbosacral region; M51.37 Other intervertebral disc degeneration, lumbosacral region; M48.07 Spinal stenosis, lumbosacral region

== ENCOUNTER 2023-08-07 07:14 | Outpatient (CLI) | payer MEDICARE ==
[2023-08-07 15:25] LABS: CHOL/HDL RATIO 3.5 (<4.4); CHOLESTEROL 247 mg/dL; HDL CHOLESTEROL 70 mg/dL; LDL CHOLESTEROL,CALCULATED 144 mg/dL; LDL/HDL RATIO 2.1 (<4.4); TRIGLYCERIDES 167 mg/dL (48-352); VLDL CHOLESTEROL 33 mg/dL
== END 2023-08-07 07:15 | disposition home or self-care (01) ==
LOC: LAB.S 07:14
PROVIDERS: ATTEND Internal Medicine
DX: E55.9 Vitamin D deficiency, unspecified (principal); Z13.220 Encounter for screening for lipoid disorders; R71.8 Other abnormality of red blood cells
CPT/HCPCS: 36415; 80061; 82306; 82746; 83090; 83721; 83921

== ENCOUNTER 2023-12-20 12:56 | Outpatient (CLI) | payer MEDICARE ==
--- NOTE | 2023-12-20 13:33 | XRAY Report ---
PROCEDURE: Hand 3+V BL INDICATIONS: OTHER SPECIFIED ARTHROPATHY TECHNIQUE: 3 views of the bilateral hand(s) acquired. COMPARISON: None. FINDINGS: Bones: No fractures or dislocations. Diffuse interphalangeal joint degeneration. This is most severe involving the bilateral second DIPs and right fifth PIP. Juxta articular lucencies are noted in poss ible gull wing appearance. 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 Diffu sely decreased osseous mineralization. No suspicious bony lesions. Soft tissues: No suspicious soft tissue calcifications or masses. IMPRESSION: Degenerative changes of the bilateral hands as described above. Juxta cortical lucencies are noted as well as possible gull wing appearance of the second DIPs, erosive osteoarthritis is not excluded. Reviewed by: Gasper Butt MD on 12/20/2023 1:32 PM PST Approved by: Gasper Butt MD on 12/20/2023 1:32 PM [facility] Station ID: [id number]
--- NOTE | 2023-12-20 13:34 | XRAY Report ---
PROCEDURE: Shoulder 2+V RT INDICATIONS: IMPINGEMENT SYNDROME OF RT SHOULDER TECHNIQUE: 3 views of the shoulder were acquired. COMPARISON: None. FINDINGS: Bones: No fractures or dislocations. Moderate degenerative changes of the acromioclavicular joint. N o suspicious bony lesions. Visualized ribs appear intact. Soft tissues: No suspicious soft tissue calcifications. The visualized lungs are within normal limi ts. IMPRESSION: No acute bony abnormality. Moderate degenerative changes of the acromioclavicular joint. Reviewed by: Gasper Butt MD on 12/20/2023 1:33 PM PST Approved by: Gasper Butt MD on 12/20/2023 1:33 PM PST Station ID: [id number]
[2023-12-20 19:53] LABS: ABSOLUTE RETICS # AUTO 0.061 10^6/uL (0.020-0.110); BASOPHILS # (AUTO) 0.2 10^3/uL (0.0-0.1); BASOPHILS % (AUTO) 2.9 %; EOSINOPHILS # (AUTO) 0.4 10^3/uL (0.0-0.7); EOSINOPHILS % (AUTO) 5.9 %; HCT - HEMATOCRIT 36.6 % (37.0-47.0); HGB - HEMOGLOBIN 12.1 g/dL (12.0-16.0); LYMPHOCYTES # (AUTO) 1.9 10^3/uL (1.5-3.5); LYMPHOCYTES % (AUTO) 30.6 %; MEAN CORPUSCULAR HEMOGLOBIN 37.8 pg (27.0-31.0); MEAN CORPUSCULAR HGB CONC 33.1 g/dL (32.0-36.0); MEAN CORPUSCULAR VOLUME 114.4 fL (81.0-99.0); MEAN PLATELET VOLUME 12.9 fL (7.9-10.8); MONOCYTES # (AUTO) 0.4 10^3/uL (0.0-1.0); MONOCYTES % (AUTO) 6.2 %; NEUTROPHILS # (AUTO) 3.3 10^3/uL (1.5-6.6); NEUTROPHILS % (AUTO) 54.1 %; PLT - PLATELET COUNT 253 10^3/uL (130-450); RED CELL DISTRIBUTION WIDTH 13.2 % (12.0-15.0); WHITE BLOOD COUNT 6.1 x10^3/uL (4.8-10.8)
[2023-12-20 20:01] LABS: SLIDE REVIEW? Indicated
[2023-12-20 20:26] LABS: PLATELET ESTIMATE, MANUAL NORMAL (130-450,000) (NORMAL); PLATELET MORPHOLOGY 1+ GIANT PLATELETS (NORMAL); RBC MORPHOLOGY (MULTIPLE) 2+ MACROCYTOSIS (NORMAL)
== END 2023-12-20 12:57 | disposition home or self-care (01) ==
LOC: DI.S 12:56
PROVIDERS: ATTEND Internal Medicine
DX: M75.41 Impingement syndrome of right shoulder (principal); M12.89 Other specific arthropathies, not elsewhere classified, multiple sites; M48.062 Spinal stenosis, lumbar region with neurogenic claudication; M25.551 Pain in right hip; D72.819 Decreased white blood cell count, unspecified; R71.8 Other abnormality of red blood cells; M19.011 Primary osteoarthritis, right shoulder; M18.0 Bilateral primary osteoarthritis of first carpometacarpal joints; M19.042 Primary osteoarthritis, left hand; M19.041 Primary osteoarthritis, right hand
CPT/HCPCS: 36415; 81374; 84550; 85025; 85045

== ENCOUNTER 2024-03-22 07:00 | Outpatient (CLI) | payer MEDICARE ==
--- NOTE | 2024-03-23 13:59 | XRAY Report ---
PROCEDURE: Chest 2V INDICATIONS: COPD WITH EXACERBATION TECHNIQUE: 2 views of the chest were acquired. COMPARISON: Chest radiograph on December 30, 2017. FINDINGS: Surgical changes and devices: None. Lungs and pleura: No pleural effusions or pneumothorax. Hyperexpansion of the lungs with flattening of the diaphragm suggestive of obstructive pulmonary disease. Right lower lobe linear atelectasis/sc ar. Lungs are otherwise clear. Mediastinum: Mediastinal contours appear normal. Heart size is normal. Bones and chest wall: No suspicious bony lesions. Overlying soft tissues appear unremarkable. Dege nerative changes of the spine. IMPRESSION: No acute cardiopulmonary process. Reviewed by: Vladimir Caro MD on 03/23/2024 1:58 PM PDT Approved by: Vladimir Caro MD on 03/23/2024 1:58 PM PDT Station ID: [id number]
== END 2024-03-22 23:59 | disposition home or self-care (01) ==
LOC: DI.S 07:00
PROVIDERS: ATTEND Internal Medicine
DX: J44.1 Chronic obstructive pulmonary disease with (acute) exacerbation (principal)